=== PATIENT | male | born 1985 | race Caucasian/White ===

== ENCOUNTER 2020-05-15 11:02 | Emergency (ER) | payer SELFPAY ==
[~2020-05-15] VITALS: Ht 193 cm; Wt 92.2 kg
[2020-05-15 11:07] VITALS: BP 107/81
[2020-05-15] MEDS ORDERED: ALBUTEROL SULFATE 2.5 MG/3 ML ONE (11:23)
[2020-05-15] MEDS ORDERED: DEXAMETHASONE 4 MG/ML, 1ML ONE (11:23)
[2020-05-15] MEDS ORDERED: ALBUTEROL SULFATE 2.5 MG/3 ML NPPB ONE (11:30)
[2020-05-15] MEDS ORDERED: DEXAMETHASONE 4 MG/ML, 1ML PO ONE (11:30)
--- NOTE | 2020-05-15 11:33 | NUR ---
PT CAME IN CO OF "ASTHMA ATTACK" THAT STARTED LAST NIGHT. PT HAS AUDIBLE WHEEZES. PT DENIES FEVERS, CHILLS, SORE THROAT, BODY ACHES. PT ONLY COMPLAINT IS THE DIFFCULT BREATHING. PT ON 2 LITERS VIA NC. PT GIVEN BREATHING TREAMENT - TOLERATING WELL. PT MEDCIATED PER AUG. EKG COMPLETE. CONNECTED TO MONITORING EQUIPMENT. WHEEZING HAS IMPROVED. WILL CONTINUE TO MONITOR.
--- NOTE | 2020-05-15 11:48 | NUR ---
PT STATES "IM FEELING WAY BETTER"
--- NOTE | 2020-05-15 12:00 | NUR ---
2 WARM BLANKETS PROVIDED. PT STATES THAT HE FEELS HIS ASTHMA EXACERBATION IS GONE AND HE FEELS MUCH BETTER.
--- NOTE | 2020-05-15 12:54 | NUR ---
Patient given discharge instructions and they have confirmed that they understand the instructions. Patient ambulatory with steady gait.
== END 2020-05-15 12:55 | disposition home or self-care (01) ==
LOC: ED 12:49
DX: J45.41 Moderate persistent asthma with (acute) exacerbation (principal); R06.02 Shortness of breath; R06.00 Dyspnea, unspecified; R05 Cough
CPT/HCPCS: 71045; 93005; 94640; 99283; J1100; J7613